=== PATIENT | female | born 1940 | race Caucasian/White ===

== ENCOUNTER 2021-06-11 01:20 | Emergency (ER) | payer OTHER ==
[~2021-06-11] VITALS: Ht 160 cm; Wt 63.5 kg
[2021-06-11] MEDS ORDERED: KETOROLAC TROMETHAMINE 30 MG/ML VIAL IV STA (01:40)
[2021-06-11] MEDS ORDERED: KETOROLAC TROMETHAMINE 30 MG/ML VIAL ONE (02:23)
[2021-06-11] MEDS ORDERED: AZITHROMYCIN 250 MG TAB PO STA (02:49)
[2021-06-11] MEDS ORDERED: AZITHROMYCIN 250 MG TAB ONE (03:02)
[2021-06-11] MEDS ORDERED: AZITHROMYCIN250 MG PO (03:05)
== END 2021-06-11 03:35 | disposition home or self-care (01) ==
LOC: FSED 01:45
DX: R07.89 Other chest pain (principal); J18.9 Pneumonia, unspecified organism; I10 Essential (primary) hypertension; I25.2 Old myocardial infarction
CPT/HCPCS: 71046; 80053; 82553; 83880; 84484; 85025; 93005; 99284; J1885